=== PATIENT | female | born 1970 | race Caucasian/White ===

== ENCOUNTER 2021-11-30 17:35 | Emergency (ER) | payer OTHER | END 2021-11-30 21:21 | disposition home or self-care (01) | LOC: CSHERS 17:35 | DX: R05.9 Cough, unspecified (principal); R50.9 Fever, unspecified; Z20.822 Contact with and (suspected) exposure to COVID-19; F17.210 Nicotine dependence, cigarettes, uncomplicated | CPT/HCPCS: 71045; 87804; U0003; U0005 ==